=== PATIENT | female | born 1990 | race Hispanic/Latino ===

== ENCOUNTER 2019-11-10 16:43 | Emergency (ER) | payer MEDICAID, OTHER ==
[2019-11-10 17:54] LABS: RAPID GROUP A STREP NEGATIVE (NEGATIVE)
[2019-11-10] MEDS ORDERED: IPRATROPIUM/ALBUTEROL SULFATE 3 ML SOLUTION IH ONE (18:32)
== END 2019-11-10 19:12 | disposition home or self-care (01) ==
LOC: EDH 16:43
DX: J20.9 Acute bronchitis, unspecified (principal); J10.1 Influenza due to other identified influenza virus with other respiratory manifestations; Z98.890 Other specified postprocedural states; Z72.0 Tobacco use
CPT/HCPCS: 71046; 87804; 87880; 94640

== ENCOUNTER 2022-01-16 16:23 | Emergency (ER) | payer OTHER ==
[~2022-01-16] VITALS: Ht 167.6 cm; Wt 127.0 kg
[2022-01-16 16:28] VITALS: BP 162/87
[2022-01-16] MEDS ORDERED: LIDOCAINE HCL 2% VISCOUS 15 ML UDCUP PO ONE (17:00)
[2022-01-16] MEDS ORDERED: MAG/ALUM/SIMETH 30 ML UDCUP PO ONE (17:00)
[2022-01-16] MEDS ORDERED: DICYCLOMINE HCL 10 MG/5 ML ML PO ONE ×2 (17:00→17:25)
[2022-01-16] MEDS ORDERED: MAG/ALUM/SIMETH 30 ML UDCUP ONE (17:25)
[2022-01-16] MEDS ORDERED: LIDOCAINE HCL 2% VISCOUS 15 ML UDCUP ONE (17:25)
[2022-01-16] MEDS ORDERED: AMOX1TAB16 PO (18:05)
[2022-01-16] MEDS ORDERED: IBUP-2070 PO (18:05)
== END 2022-01-16 18:46 | disposition home or self-care (01) ==
LOC: EDH 16:23
DX: I88.9 Nonspecific lymphadenitis, unspecified (principal); J02.9 Acute pharyngitis, unspecified; R03.0 Elevated blood-pressure reading, without diagnosis of hypertension; E66.9 Obesity, unspecified; Z68.42 Body mass index [BMI] 45.0-49.9, adult
CPT/HCPCS: 87804; 87880